=== PATIENT | female | born 1985 | race Hispanic/Latino ===

== ENCOUNTER 2018-01-03 22:00 | Inpatient (IN) | payer MEDICAID, OTHER, SELFPAY ==
[2018-01-03 23:50] VITALS: BMI 29.4
[2018-01-04] MEDS ORDERED: LR 500 ML/Oxytocin 10 units 500 ML ONE (00:01)
--- NOTE | 2018-01-04 00:19 | PDOC.LDHP ---
Labor and Delivery H&P Chief complaint: scheduled induction HPI: 32 yo at 41.2 by 27.6 week US in [place] presents for scheduled induction of labor. has been complicated by LTC. Other pregnancies were uncomplicated with the exception of being pre-e with 1 . She states that she may have had loss of fluid yesterday, denies bleeding, she has had some decreased movement compared to last week, but still feels baby move consistently Current gestational age (weeks): 41 (41.3) Due date: 12/27/17 Dating criteria: second trimester ultrasound Grav: 6 Para: 5 Current complications: other (Late to care) Abnormal US findings: No Current medications: none Social history: none - Physical Exam Vital signs reviewed and normal: yes General: NAD Heart: RRR Lungs: CTAB Abdomen: gravid Extremeties: no edema FHT: category 1, variability present, absent or minimal variables [place] contractions every: few - Vaginal Exam cm dilated: 2 Effacement: 50% Station: -3 - OB Labs Blood type: O RH: positive Antibody Screen: negative HIV: negative RPR: negative HEPSAg: negative 1 hour GCT: unknown 3 hour GTT: unknown GBS: positive Rubella: immune - Assessment L&D Assessment: medically indicated induction (late term) 32 yo here for induction for late term - admit for induction, granger score 4 - amnisure pending - GBS +, will start PCN - start pitocin, recheck q2 - continuous monitoring - dates are questionable due to late to care and generally unavailable medical record in [place] - Plan Plan: admit to L&D, GBS antibiotic prophylaxis <Elfego Peters - Last Filed: 01/04/18 00:17> <Malvin Lopes - Last Filed: 01/04/18 03:26> Allergies/Adverse Reactions: Allergies Allergy/AdvReac Type Severity Reaction Status Date / Time No Known Allergies Allergy Unverified 01/03/18 23:26 Attending Addendum - Attending Addendum Date/Time: 01/04/18 6856 I personally evaluated the patient and discussed the management with Dr. Peters. I agree with and repeated the History, Examination, Assessment and Plan documented above with any addition or exceptions noted below. Favorable granger; late term induction. <Malvin Lopes - Last Filed: 01/04/18 03:26>
[2018-01-04] MEDS ORDERED: Penicillin G Potassium 5 MILL.UNITS VIAL ONE (00:31)
[2018-01-04] MEDS ORDERED: Diphenoxylate HCl/Atropine Tablet PO PRN (00:32)
[2018-01-04] MEDS ORDERED: Methylergonovine 0.2 MG/ML VIAL IM PRN (00:32)
[2018-01-04] MEDS ORDERED: Ondansetron HCl/PF 4 MG/2 ML Vial IVP PRN ×2 (00:32→06:14)
[2018-01-04] MEDS ORDERED: Misoprostol 200 MCG TAB PR PRN (00:32)
[2018-01-04] MEDS ORDERED: Lidocaine 1% (PF) 30 ML VIAL SC PRN (00:32)
[2018-01-04] MEDS ORDERED: Ibuprofen 800 MG TAB PO PRN ×2 (00:32→06:14)
[2018-01-04] MEDS ORDERED: Promethazine HCl 25 MG/ML VIAL IM PRN (00:32)
[2018-01-04] MEDS ORDERED: Carboprost 250 MCG/ML AMP IM PRN (00:32)
[2018-01-04] MEDS ORDERED: LR 500 ML/Oxytocin 10 units 500 ML IV SCH (00:45)
[2018-01-04] MEDS ORDERED: Lactated Ringer's 1,000 ML IV SCH (00:45)
[2018-01-04] MEDS ORDERED: Penicillin G Potassium 5 MILL.UNITS in Sodium Chloride 0.9% 100 ML IVPB SCH (00:45)
[2018-01-04 02:05] LABS: Amnisure Test RUPTURE DETECTED (No Rupture)
[2018-01-04 02:06] LABS: Amnisure Internal Control QC ACCEPTABLE (ACCEPTABLE)
[2018-01-04 02:08] LABS: HBSAg Index 0.13 S/CO (0-0.99); Hep B Surf Ag Non-Reactive S/CO (NonReactive)
[2018-01-04] MEDS ORDERED: Lidocaine 1% (PF) 30 ML VIAL ONE (02:59)
[2018-01-04] MEDS ORDERED: LR / Pitocin 40 units/1000 ml 1,000 ML ONE (02:59)
[2018-01-04] MEDS: LR / Pitocin 40 units/1000 ml 1,000 ML IV PRN ×2 (03:10→05:30)
--- NOTE | 2018-01-04 03:37 | PDOC.OPDEL ---
OB Operative/Delivery Note Delivery Dr/Surgeon: Residents: [facility]; Staff: Tevin Lopes MD Pre-Delivery Diagnosis: active labor, medically indicated induction (late term) Procedure/Post Delivery Dx: spontaneous vaginal delivery Weeks gestation: 41 Anesthesia: none - Additional Findings/Plan Placenta delivered: spontaneous Repaired Obstetrical Laceration: 1st degree (hemostatic) Estimated blood loss: 200 Post delivery plan: routine recovery Attending Addendum - Attending Addendum Date/Time: 01/04/18 0334 I was present for the delivery. -> P6 s/p to viabe female delivered in JOEL position with no nuchal cord. delivered atraumatically and placed [id number]. Optimal cord clamping performed. Cord clamped and cut and blood sampled. Placenta delivered via CCT, intact. Uterus firmed with fundal massage and IV pitocin. One small first degree, hemostatic and well approximated, noted and did not require repair. Cytotec 800 mcg given OK. EBL 200 cc. AG 06/07. One dose PCN. No anesthesia. Unknown time of PROM.
[2018-01-04] MEDS ORDERED: Penicillin G 2.5 MILL.units 2.5 MILL.UNITS in Premix Bag 1 BAG IVPB SCH (05:00)
[2018-01-04 05:14] LABS: Hemoglobin 11.4 g/dL (12.0-16.0); Mean Corpuscular HGB CONC 34.5 g/dL (32.0-36.0); Mean Corpuscular Hemoglobin 31.7 pg (27.0-31.0); Mean Corpuscular Volume 91.9 fl (81.0-99.0); Mean Platelet Volume 9.6 fL (7.4-10.4); Platelet Count 175 thou/uL (130-400); RBC Distribution Width 12.7 % (11.5-14.5); Red Blood Cell (RBC) Count 3.61 mill/uL (4.20-5.40); White Blood Cell (WBC) Count 7.8 thou/uL (4.8-10.8)
[2018-01-04 05:26] LABS: Syphilis Antibody Nonreactive (Nonreactive); Syphilis Antibody Index 0.04 S/CO (<1.00 Non-Reactive)
[2018-01-04] MEDS ORDERED: Preparation H Ointment 28 GM TUBE PR PRN (06:14)
[2018-01-04] MEDS ORDERED: Milk Of Magnesia 30 ML UDCUP PO PRN (06:14)
[2018-01-04] MEDS ORDERED: LR / Pitocin 40 units/1000 ml 1,000 ML IV SCH (06:14)
[2018-01-04] MEDS ORDERED: diphenhydrAMINE 25 MG CAP PO PRN (06:14)
[2018-01-04] MEDS ORDERED: Benzocaine/Menthol 20-0.5% 60 ML CAN TOP PRN (06:14)
[2018-01-04] MEDS ORDERED: Lanolin Ointment 7 GM TUBE TOP PRN (06:14)
[2018-01-04] MEDS ORDERED: Bisacodyl 10 MG SUPP PR PRN (06:14)
[2018-01-04] MEDS ORDERED: Docusate Calcium (SURFAK) 240 MG CAP PO PRN (06:14)
[2018-01-04] MEDS ORDERED: Adacel (T-DAP) 0.5 ML VIAL IM ONE (09:00)
[2018-01-04] MEDS: Docusate Calcium (SURFAK) 240 MG CAP PO SCH ×2 (09:40→21:07)
[2018-01-04] MEDS: Ibuprofen 800 MG TAB PO SCH ×2 (15:12→21:08)
[2018-01-05] MEDS: Ibuprofen 800 MG TAB PO SCH ×3 (05:35→21:39)
[2018-01-05 05:58] LABS: Hemoglobin 11.9 g/dL (12.0-16.0); Mean Corpuscular HGB CONC 33.9 g/dL (32.0-36.0); Mean Corpuscular Hemoglobin 30.3 pg (27.0-31.0); Mean Corpuscular Volume 89.6 fl (81.0-99.0); Mean Platelet Volume 8.5 fL (7.4-10.4); Platelet Count 167 thou/uL (130-400); RBC Distribution Width 12.7 % (11.5-14.5); Red Blood Cell (RBC) Count 3.92 mill/uL (4.20-5.40); White Blood Cell (WBC) Count 9.2 thou/uL (4.8-10.8)
--- NOTE | 2018-01-05 08:20 | PDOC.PP ---
Post Progress Note Post Day #: 1 Subjective: Patient is doing well. She is eating and urinating normally. She has been able to pass gas, but hasn't had a BM yet. She notes that every time she has a baby she gets painful hemorrhoids and does not want that to happen this time. She denies chest pain, sob, n/v/d, vision changes, or headaches. PO intake tolerated: yes Flatus: yes Ambulation: yes Vital Signs (12 hours) Temp Pulse Resp BP 01/04/18 23:33 98.6 F 70 16 105/64 Weight Weight 68.039 kg - Physical Examination General: NAD Cardiovascular: no m/r/g, RRR Respiratory: clear to auscultation bilaterally, non-labored breathing Abdominal: + bowel sounds, lochia, no distention, appropriately TTP Fundus firm & at: umbilicus Extremities: negative homans (B) Skin: no rash Neurological: no gross focal deficits Psychiatric: A&Ox3 Result Diagrams: 01/05/18 05:48 Additional Labs: Post Labs Blood Type O POSITIVE 01/03/18 23:30 Hep Bs Antigen Non-Reactive S/CO (NonReactive) 01/04/18 00:32 (1) Term delivered Code(s): O80 - ENCOUNTER FOR FULL-TERM UNCOMPLICATED DELIVERY Status: Acute (2) Hemorrhoids Code(s): K64.9 - UNSPECIFIED HEMORRHOIDS Status: Acute - Assessment/Plan 1. Term delivered - Vitals normal - H & H appropriate - Continue routine care 2. Hemorrhoids - Stool softener - Topical therapy Disposition: Stable, Will likely discharge home tomorrow after observation period. <Osei Lopez - Last Filed: 01/05/18 11:02> Vital Signs (12 hours) Temp Pulse Resp BP BP 01/05/18 07:45 98.8 F 63 18 103/64 01/04/18 23:33 98.6 F 70 16 105/64 Weight Weight 68.039 kg Result Diagrams: 01/05/18 05:48 Additional Labs: Post Labs Blood Type O POSITIVE 01/03/18 23:30 Hep Bs Antigen Non-Reactive S/CO (NonReactive) 01/04/18 00:32 <Thom Enciso - Last Filed: 01/05/18 11:07> Attending Addendum - Attending Addendum Date/Time: 01/05/18 0909 I personally evaluated the patient and discussed the management with Dr. Lopez I agree with the History, Examination, Assessment and Plan documented above with any addition or exceptions noted below. Pain controlled. Afeb. Fundus firm. Diastasis recti. Hemorrhoids. Continue routine PP care. <Thom Enciso - Last Filed: 01/05/18 11:07>
[2018-01-05] MEDS: Docusate Calcium (SURFAK) 240 MG CAP PO SCH ×2 (09:34→21:39)
[2018-01-06] MEDS: Ibuprofen 800 MG TAB PO SCH ×2 (05:52→14:10)
[2018-01-06] MEDS: Docusate Calcium (SURFAK) 240 MG CAP PO SCH (08:24)
--- NOTE | 2018-01-06 08:37 | PDOC.PP ---
Post Progress Note Post Day #: 2 Subjective: Patient is doing well. She complains of a very small amount of bleeding and no pain. She does note that her hemorrhoids are flaring up, but she didn't use any cream yesterday. She states she is supplementing formula with currently. She denies chest pain, headaches, vision changes, n/v/d, or leg swelling. No other complaints this morning. PO intake tolerated: yes Flatus: yes Ambulation: yes Weight Weight 68.039 kg - Physical Examination General: NAD Cardiovascular: no m/r/g, RRR Respiratory: clear to auscultation bilaterally Abdominal: + bowel sounds, lochia, no distention, appropriately TTP Extremities: negative homans (B) Skin: no rash Neurological: no gross focal deficits Psychiatric: A&Ox3, normal affect Result Diagrams: 01/05/18 05:48 Additional Labs: Post Labs Blood Type O POSITIVE 01/03/18 23:30 Hep Bs Antigen Non-Reactive S/CO (NonReactive) 01/04/18 00:32 (1) Term delivered Code(s): O80 - ENCOUNTER FOR FULL-TERM UNCOMPLICATED DELIVERY Status: Acute (2) Hemorrhoids Code(s): K64.9 - UNSPECIFIED HEMORRHOIDS Status: Acute - Assessment/Plan 1. Term delivered - Vitals normal - H & H appropriate - Continue routine care 2. Hemorrhoids - Stool softener - Topical therapy Disposition: Stable, Ready for discharge. <Osei Lopez - Last Filed: 01/06/18 08:35> Weight Weight 68.039 kg Result Diagrams: 01/05/18 05:48 Additional Labs: Post Labs Blood Type O POSITIVE 01/03/18 23:30 Hep Bs Antigen Non-Reactive S/CO (NonReactive) 01/04/18 00:32 <Thom Enciso - Last Filed: 01/08/18 15:09> Attending Addendum - Attending Addendum Date/Time: 01/08/18 1959 I personally evaluated the patient and discussed the management with Dr. Lopez. I agree with the History, Examination, Assessment and Plan documented above with any addition or exceptions noted below. Pain controlled. Lochia normal. Afeb. Fundus Firm. Stable for d/c home. <Thom Enciso - Last Filed: 01/08/18 15:09>
[2018-01-06 10:14] VITALS: BP 114/73; TEMP 98.4
== END 2018-01-06 16:25 | disposition home or self-care (01) | DRG 775 ==
LOC: L&D 22:44 → 3SW 01-04 05:46
PROVIDERS: ADMIT Emergency Medicine; ATTEND Emergency Medicine
PROC: 10E0XZZ Delivery of Products of Conception, External Approach (ICD-10-PCS; principal; 2018-01-04)
PROC: 3E033VJ Introduction of Other Hormone into Peripheral Vein, Percutaneous Approach (ICD-10-PCS; 2018-01-04)
DX: O48.0 Post-term pregnancy (principal); O22.43 Hemorrhoids in pregnancy, third trimester; O70.0 First degree perineal laceration during delivery; Z37.0 Single live birth; Z3A.41 41 weeks gestation of pregnancy; O99.824 Streptococcus B carrier state complicating childbirth
CPT/HCPCS: 36415; 84112; 85027; 86780; 87340; J2001; J2540; J7120

== ENCOUNTER 2021-03-19 10:29 | Outpatient (CLI) | payer OTHER | END 2021-03-19 10:30 | disposition home or self-care (01) | LOC: BICULT 10:29 | PROVIDERS: ATTEND Family Medicine | DX: O09.522 Supervision of elderly multigravida, second trimester (principal); Z3A.21 21 weeks gestation of pregnancy | CPT/HCPCS: 76805 ==